=== PATIENT | female | born 1945 | race African-American/Black ===

== ENCOUNTER 2024-10-24 21:32 | Emergency (ER) | payer MEDICARE, OTHER ==
[2024-10-24] MEDS ORDERED: hydrALAZINE 20 MG/ML VIAL ONE (22:06)
[2024-10-24 22:42] LABS: #Basophils 0.03 10x3/uL (0.0-0.2); #Eosinophils 1.36 10x3/uL (0.0-0.5); #Monocytes 0.57 10x3/uL (0.0-1.1); #Neutrophils 3.33 10x3/uL (1.5-8.4); %Basophils 0.4 % (0.0-2.0); %Eosinophils 16.5 % (0.0-6.0); %Lymphocytes 35.4 % (18.0-47.0); %Monocytes 6.9 % (0.0-10.0); %Neutrophils 40.6 % (40.0-75.0); Hematocrit 37.2 % (34.9-44.5); Hemoglobin 11.8 g/dL (12.0-15.5); Mean Corpuscular Hemoglobin 25.9 pg (27.0-33.0); Mean Corpuscular Volume 81.8 fL (81.6-98.3); Platelet Count 212 10x3/uL (150-450); Red Blood Cell (RBC) Count 4.55 10x6/uL (3.90-5.03); White Blood Cell (WBC) Count 8.22 10x3/uL (3.5-10.5)
[2024-10-24 22:59] LABS: ALT (SGPT) 12 U/L (Less than 34); AST (SGOT) 24 U/L (11-34); Albumin 3.8 g/dL (3.1-4.5); Alkaline Phosphatase 61 U/L (40-110); Anion Gap 17 mmol/L (10-20); BUN (Urea Nitrogen) 22 mg/dL (9.8-20.1); Bilirubin, Total 0.2 mg/dL (0.3-1.2); Calc. Creatinine Clearance 0 mL/min (70-130); Calcium 9.9 mg/dL (7.8-10.44); Carbon Dioxide 24 mmol/L (23-31); Chloride 106 mmol/L (98-107); Globulin 4.1 g/dL (2.4-3.5); Glucose 128 mg/dL (83-110); Potassium 4.0 mmol/L (3.5-5.1); Sodium 143 mmol/L (136-145)
== END 2024-10-25 00:20 | disposition home or self-care (01) ==
LOC: CSHERS 21:32
DX: I10 Essential (primary) hypertension (principal)
CPT/HCPCS: 71045; 80053; 85025; 93005; 94760; J0360; 36415; 96374; 96376